=== PATIENT | female | born 1960 | race Caucasian/White ===

== ENCOUNTER → 2017-11-14 10:00 | Outpatient (CLI) | payer OTHER ==
[~2017-11-14] VITALS: Ht 172.7 cm; Wt 132.0 kg
[~2017-11-14 10:00] MED LIST: LEVO-T25 MCG PO; ZESTRIL20 MG PO
== END | disposition home or self-care (01) ==
LOC: LAB 10:00 → EDSTATUS 11-19 08:30 → SURH 11-19 08:30
DX: N83.292 Other ovarian cyst, left side (principal); N83.291 Other ovarian cyst, right side